=== PATIENT | female | born 1955 | race Two or more races ===

== ENCOUNTER 2021-03-04 02:00 | Inpatient (IN) | payer OTHER ==
[~2021-03-04] VITALS: Ht 157.5 cm; Wt 57.6 kg
--- NOTE | 2021-03-04 02:15 | NUR ---
BIB [facility] C/O MIDSTERNAL C/P AND ABD PAIN 01/29 THAT BEGAN AT 2030 AFTER TAKING TWO SHOTS OF VODKA AND SMOKING HER JUUL. REPORTS HX OF ANXIETY THAT BEGAN THIS YEAR THAT SHE HAS NOT BEEN SEEN FOR. REPORTS SOB AND NASUEA WITH NO VOMITTING. PT APPEARS ANXIOUS ON ASSESSMENT WITH TACHYCARDIA AND ELEVATED BP. OXYGEN 99% ON ROOM AIR. ENTRANCE GUARD APPLIED AND EKG COMPLETED BY EMT. BLOOD DRAWN AND SENT TO LAB. WAS AT BEDSIDE FOR EVAL.
[2021-03-04] MEDS ORDERED: IOHEXOL-350 100 ML VIAL IV ONE ×2 (02:17→03:01)
[2021-03-04] MEDS ORDERED: IV NS 0.9% 250 ML IV ONE ×2 (02:17→03:01)
[2021-03-04] MEDS ORDERED: ONDANSETRON HCL/PF 4 MG/2 ML VIAL ONE (02:19)
[2021-03-04] MEDS ORDERED: MORPHINE SULFATE INJ 4 MG/ML DISP.SYRIN ONE (02:20)
[2021-03-04 02:29] LABS: CALCIUM, SERUM 8.8 mg/dL (8.5-10.1); CARBON DIOXIDE 22 mmol/L (21-32); CHLORIDE 107 mmol/L (98-107); CREATININE 0.8 mg/dL (0.6-1.3); GLUCOSE 142 mg/dL (74-106); POTASSIUM 3.4 mmol/L (3.5-5.1); SODIUM SERUM 142 mmol/L (136-145); UREA NITROGEN, BLOOD 17 mg/dL (7-18)
[2021-03-04] MEDS ORDERED: ONDANSETRON HCL/PF 4 MG/2 ML VIAL IVP ONE (02:30)
[2021-03-04] MEDS ORDERED: IV NS 0.9% 1,000 ML BAG IV ONE (02:30)
[2021-03-04] MEDS ORDERED: MORPHINE SULFATE INJ 2 MG/ML DISP.SYRIN IV ONE (02:30)
[2021-03-04 02:35] LABS: ALANINE AMINOTRANSFERASE 18 U/L (12-78); ALBUMIN 3.9 g/dL (3.4-5.0); ALKALINE PHOSPHATASE 38 U/L (46-116); ASPARTATE AMINOTRANSFERASE 19 U/L (15-37); BILIRUBIN,DIRECT 0.1 mg/dL (0.0-0.2); BILIRUBIN,TOTAL 0.2 mg/dL (0.2-1.0); LIPASE 143 U/L (73-393); TOTAL PROTEIN, SERUM 7.6 g/dL (6.4-8.2)
--- NOTE | 2021-03-04 02:40 | NUR ---
PT BEING TAKEN TO CT
--- NOTE | 2021-03-04 02:47 | NUR ---
PT RETURNED FROM CT
[2021-03-04 02:48] LABS: BASOPHILS % (AUTO) 0.4 % (0.0-2.0); HEMATOCRIT 37 % (33-45); HEMOGLOBIN 12.6 g/dL (11.5-14.8); MEAN CORPUSCULAR HGB CONC 34 g/dl (31.0-36.0); MEAN CORPUSCULAR VOLUME 92 fL (82-100); MONOCYTES # (AUTO) 0.4 K/uL (0.1-1.30); MONOCYTES % (AUTO) 4.7 % (2.0-12.0); NEUTROPHILS # (AUTO) 2.7 K/uL (1.8-8.9); NEUTROPHILS % (AUTO) 32.9 % (43.0-81.0); PLATELET COUNT (AUTO) 291 K/uL (150-450); RED BLOOD CELL COUNT(AUTO) 4.07 MIL/uL (4.0-5.2); WHITE BLOOD COUNT (AUTO) 8.3 K/uL (4.3-11.0)
[2021-03-04] MEDS ORDERED: LORAZEPAM INJ 2 MG/ML VIAL ONE (02:52)
--- NOTE | 2021-03-04 02:52 | NUR ---
[facility] [phone]
[2021-03-04] MEDS ORDERED: LORAZEPAM INJ 2 MG/ML VIAL IV ONE (03:00)
--- NOTE | 2021-03-04 03:35 | NUR ---
PT SLEEPING COMFORTABLY IN BED. EASILY AROUSABLE V/S WITHIN NORMAL RANGE.
--- NOTE | 2021-03-04 04:39 | NUR ---
CALLED NICOLETTE IN REGARDS TO PT CTA OF ABD AND PELVIS.
--- NOTE | 2021-03-04 05:16 | NUR ---
CALLED NICOLETTE FOLLOWING UP ON CTA ABD AND CHEST
[2021-03-04] MEDS ORDERED: MORPHINE SULFATE INJ 2 MG/ML DISP.SYRIN IV PRN (06:00)
[2021-03-04] MEDS ORDERED: MAGNESIUM HYDROXIDE 30 ML UDC PO PRN (06:00)
[2021-03-04] MEDS ORDERED: MAG HYDROX/AL HYDROX/SIMETH 30 ML UDC PO PRN (06:00)
[2021-03-04] MEDS ORDERED: NITROGLYCERIN 0.4 MG/TAB BOTTLE SL PRN (06:00)
[2021-03-04] MEDS ORDERED: ONDANSETRON HCL/PF 4 MG/2 ML VIAL IVP PRN (06:00)
[2021-03-04] MEDS ORDERED: ACETAMINOPHEN 325 MG TABLET PO PRN (06:00)
[2021-03-04 07:06] LABS: CHOLESTEROL 150 mg/dL (<200); HDL CHOLESTEROL 44 mg/dL (40-60); LDL 68 mg/dL (0-99); THYROID STIMULATING HORMONE 4.109 uIU/mL (0.358-3.74); TRIGLYCERIDES 272 mg/dL (30-150)
--- NOTE | 2021-03-04 07:18 | NUR ---
PT SLEEPING COMFORTABLY EASILY AROUSABLE. REPORT GIVEN TO LESLIE NAVA FOR JD
--- NOTE | 2021-03-04 07:21 | NUR ---
RECEIVED REPORT FROM YUSRA CANADA FOR JD. PT ASLEEP ON BED EASILY AROUSABLE, NOT IN RESPIRATORY DISTRESS, V/S STABLE, KEPT RESTED AND COMFORTABLE. WILL CONTINUE TO MONITOR.
[2021-03-04] MEDS ORDERED: PANTOPRAZOLE 40 MG TABLET.DR PO ONE (07:30)
[2021-03-04] MEDS ORDERED: PANTOPRAZOLE 40 MG TABLET.DR PO SCH (07:30)
--- NOTE | 2021-03-04 07:50 | NUR ---
going to 311.
--- NOTE | 2021-03-04 07:54 | NUR ---
CALLED RN FOR REPORT PASSING MEDS. HORTA BACK IN 5 MINS
--- NOTE | 2021-03-04 08:09 | NUR ---
REPORT GIVEN TO YUSRA TONY FOR JD.
--- NOTE | 2021-03-04 08:20 | NUR ---
CLOTH EDGE SINGER AT BEDSIDE FOR ULTRASOUND.
[2021-03-04 08:30] VITALS: BP 123/68
[2021-03-04] MEDS ORDERED: IBUP-1953 PO (08:43)
[2021-03-04] MEDS ORDERED: LEVO50TA8 PO (08:43)
[2021-03-04] MEDS ORDERED: LISI10TA29 PO (08:43)
[2021-03-04] MEDS ORDERED: CALC-17 PO (08:43)
[2021-03-04] MEDS ORDERED: ASPIRIN EC 81 MG TABLET.DR PO SCH (09:00)
--- NOTE | 2021-03-04 09:50 | NUR ---
TELE ADMIT FROM ER AFTER REPORT RECEIVED. PATIENT ORIENTED TO PRIMARY RN, UNIT, ROOM, BED, AND UNITE POLICIES REGARDING PATIENT CARE AND VISITING HOURS. PATIENT NOW ON CONTINUOUS TELEMETRY MONITORING; READING ON ARRIVAL IS SR 66. PATIENT PLACED ON BEDSIDE 02, WEIGHED BY BEDSCALE AND ENCOURAGED TO CALL IF THEY NEED SOMETHING. ALL QUESTIONS AND CONCERNS ADDRESSED. PATIENT VERBALIZED UNDERSTANDING.
[2021-03-04 12:00] VITALS: BP 81/50
[2021-03-04] MEDS ORDERED: [UNRECOGNIZED DRUG - OTHER] PO (12:08)
[2021-03-04] MEDS ORDERED: METH10TA2 PO (12:08)
[2021-03-04] MEDS ORDERED: ENAL20TA18 PO (12:08)
[2021-03-04] MEDS ORDERED: MULT-447 PO (12:08)
[2021-03-04] MEDS ORDERED: IV NS 0.9% 500 ML IV ONE (13:00)
[2021-03-04] MEDS ORDERED: NALOXONE HCL 0.4 MG/ML AMPUL IV PRN (13:00)
[2021-03-04] MEDS: METOPROLOL TARTRATE 25 MG TABLET PO SCH ×2 (14:00→21:00)
--- NOTE | 2021-03-04 15:25 | NUR ---
PAGED JIM GIVEN ORDERED. PATIENT MANIFESTING AGGRESSIVE, ANXIOUS BEHAVIOR. NOTIFIED. ORDERS RECEIVED. WILL CARRY OUT. Addendum: 03/04/21 at 1849 by CECILY CAMPBELL RN TELE READING ST 150
[2021-03-04] MEDS ORDERED: MORPHINE SULFATE INJ 4 MG/ML DISP.SYRIN IV PRN (15:30)
[2021-03-04 16:00] VITALS: BP 102/47
--- NOTE | 2021-03-04 16:15 | NUR ---
MORPHINE TOLERATED INTENDED PER MD. TELE READING SR 88
--- NOTE | 2021-03-04 18:41 | NUR ---
CHANGE OF SHIFT REPORT PT RESTING COMFORTABLY IN BED WITH EYES CLOSED. NO S/S OR C/O PAIN OR DISTRESS NOTED. SIDE RAILS UP X2, CALL LIGHT LEFT WITHIN REACH. PT KEPT CLEAN, DRY, AND COMFORTABLE. NO SIGNIFICANT CHANGES SINCE PREVIOUS SHIFT. WILL CONTINUE PLAN OF CARE.
--- NOTE | 2021-03-04 19:31 | NUR ---
OPENING NOTES PT RESTING COMFORTABLY IN BED WITH EYES CLOSED. NO S/S OR C/O PAIN OR DISTRESS NOTED. SIDE RAILS UP X2, CALL LIGHT LEFT WITHIN REACH. PT KEPT CLEAN, DRY, AND COMFORTABLE. DAUGHTER AT BEDSIDE. WILL CONTINUE TO MONITOR.
[2021-03-04 20:00] VITALS: BP 120/59
[2021-03-04] MEDS ORDERED: ENALAPRIL MALEATE (10 MG) 10 MG TABLET PO SCH (21:00)
[2021-03-04] MEDS ORDERED: IBUPROFEN 400 MG TABLET PO PRN (21:00)
[2021-03-05] VITALS: BP 133/74
[2021-03-05] MEDS ORDERED: ZOLPIDEM TARTRATE 5 MG TABLET ONE (00:21)
[2021-03-05] MEDS: ZOLPIDEM TARTRATE 5 MG TABLET PO ONE ×2 (00:22→00:27)
--- NOTE | 2021-03-05 00:29 | NUR ---
RN NOTES PT REQUESTING A SLEEPING PILL NOTIFIED, ORDERED AMBIEN 5MG P.0 X1 .PT REFUSED AMBIEN STATED " I DON'T WANT IT THAT'S THE PILL I TOOK RIGHT BEFORE THEY BROUGHT ME TO THE HOSPITAL AND I STARTED FEELING BAD" AMBIEN WAS DISCARDED WITH Amee MENG. WILL CONTINUE TO MONITOR.
[2021-03-05 04:00] VITALS: BP 121/60
--- NOTE | 2021-03-05 05:59 | NUR ---
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 WILL ENDORSE TO DAY SHIFT NURSE.
[2021-03-05 06:17] LABS: BASOPHILS % (AUTO) 0.4 % (0.0-2.0); EOSINOPHILS % (AUTO) 2.6 % (0.0-6.0); HEMATOCRIT 35 % (33-45); HEMOGLOBIN 11.8 g/dL (11.5-14.8); LYMPHOCYTES # (AUTO) 2.2 K/uL (0.8-4.8); LYMPHOCYTES % (AUTO) 36.5 % (20.0-44.0); MEAN CORPUSCULAR HGB CONC 34 g/dl (31.0-36.0); MEAN CORPUSCULAR VOLUME 92 fL (82-100); MONOCYTES # (AUTO) 0.2 K/uL (0.1-1.30); MONOCYTES % (AUTO) 3.9 % (2.0-12.0); NEUTROPHILS # (AUTO) 3.5 K/uL (1.8-8.9); NEUTROPHILS % (AUTO) 56.6 % (43.0-81.0); PLATELET COUNT (AUTO) 218 K/uL (150-450); RED BLOOD CELL COUNT(AUTO) 3.81 MIL/uL (4.0-5.2); WHITE BLOOD COUNT (AUTO) 6.2 K/uL (4.3-11.0)
--- NOTE | 2021-03-05 06:33 | NUR ---
CLOSING RN NOTES PT RESTING COMFORTABLY IN BED WITH EYES CLOSED. NO S/S OR C/O PAIN OR DISTRESS NOTED. SIDE RAILS UP X2, CALL LIGHT LEFT WITHIN REACH. PT KEPT CLEAN, DRY, AND COMFORTABLE. WILL ENDORSE CARE TO DAY SHIFT NURSE.
[2021-03-05 06:57] LABS: CALCIUM, SERUM 8.6 mg/dL (8.5-10.1); CREATININE 0.5 mg/dL (0.6-1.3); MAGNESIUM 2.4 mg/dL (1.8-2.4); PHOSPHORUS 3.3 mg/dL (2.5-4.9); POTASSIUM 3.9 mmol/L (3.5-5.1)
[2021-03-05] MEDS ORDERED: LEVOTHYROXINE SODIUM 50 MCG TABLET PO SCH (07:30)
--- NOTE | 2021-03-05 07:30 | NUR ---
tele offset plate preparation supervisor: notes received pt in bed awake, a/ox4. pt refusing tele monitor and still refusing ct angio procedure, pt wants to go home as stated.
[2021-03-05 08:00] VITALS: BP 133/80
--- NOTE | 2021-03-05 08:05 | NUR ---
tele dragline engineer: notes after explaining the ct angio heart procedure, pt signed the consent.
--- NOTE | 2021-03-05 08:15 | NUR ---
tele research geneticist: notes june (tech) at bedside talking to the pt about ct angio and pt change her mind and wants to sign out against medical advice without seeing by pmd and voluntary leaving the hospital against the advice of dr. bridges. pt verbalized understanding about the risks and consequences of leaving [facility]. spoke to dr. bridges over the phone and made aware re: [facility] and refusal of cta procedure. also spoke to dr. shankar re: [facility]. cn aware.
--- NOTE | 2021-03-05 08:30 | NUR ---
tele toll ticket clerk: notes pt signed [facility] form and verbalized understanding about the risks and consequences of leaving against medical advice. h/l removed with tip intact.
--- NOTE | 2021-03-05 08:40 | NUR ---
tele refrigeration operator: notes left hospital accompanied by daughter via private car with all d'c [facility] instructions and follow up.
[2021-03-05] MEDS ORDERED: LISINOPRIL (10MG) 10 MG TABLET PO SCH (09:00)
== END 2021-03-05 08:40 | disposition left against medical advice (07) | DRG 812 ==
LOC: ER 02:01 → TELE 07:56
PROVIDERS: ADMIT Nurse Practitioner Acute Care; ATTEND Student in an Organized Health Care Education/Training Program
DX: T40.3X1A Poisoning by methadone, accidental (unintentional), initial encounter (principal); G92 Toxic encephalopathy; E78.00 Pure hypercholesterolemia, unspecified; I10 Essential (primary) hypertension; Y92.009 Unspecified place in unspecified non-institutional (private) residence as the place of occurrence of the external cause; M94.0 Chondrocostal junction syndrome [Tietze]; F32.9 Major depressive disorder, single episode, unspecified; Z20.822 Contact with and (suspected) exposure to COVID-19; I35.1 Nonrheumatic aortic (valve) insufficiency; F40.240 Claustrophobia; Z98.890 Other specified postprocedural states; F41.9 Anxiety disorder, unspecified
CPT/HCPCS: 36415; 80048-TC; 80061-TC; 80076-TC; 83690-TC; 83735-TC; 84100-TC; 84443-TC; 84484-TC; 85025-TC; 87081-TC; 93307-TC; C9803; G0378; J2060; J2270; J2310; J2405; J7030; J7050; Q9967